=== PATIENT | male | born 1955 | race Hispanic/Latino ===

== ENCOUNTER 2018-06-10 12:24 | Inpatient (IN) | payer MEDICARE, OTHER ==
[~2018-06-10] VITALS: Ht 182.9 cm; Wt 93.6 kg
[2018-06-10] MEDS ORDERED: SODIUM CHLORIDE 0.9% 500ML 500 ML IV STA (12:26)
--- OUTSIDE RECORDS SUMMARY | 2018-06-10 12:26 | XMS REPORT | Clinical Summary ---
Author Author [facility] Organization [facility] Address Unknown Phone Unavailable Care Team Providers Care Interactive Account Manager Name Role Phone Debbie Ball MD PCP Allergies Comments Active Allergy Reactions Severity Noted Date No Known Drug Allergies 05/24/2016 Medications End Date Status Medication Sig Dispensed Refills Start Date Active blood pressure monitor 1 kit 2 (two) 1 each 0 (BLOOD PRESSURE KIT) times a day. 6 kitIndications: Essential hypertension Active blood-glucose meter 1 kit 2 (two) 1 each 0 miscIndications: Type II times a day. 6 or unspecified type diabetes mellitus without mention of complication, not stated as uncontrolled Active aspirin (ECOTRIN) 81 MG Take 1 tablet 30 tablet 3 enteric coated tablet (81 mg total) 6 by mouth daily. Active blood sugar diagnostic TESTING ONCE 100 strip 5 strips (glucose blood) A DAY FOR 6 strip test GLUCOSE stripsIndications: Uncontrolled type 2 diabetes mellitus with hyperosmolarity without coma, without long-term current use of insulin (HCC) Active metFORMIN (GLUCOPHAGE) Take 500 mg 0 1,000 mg tablet by mouth 2 (two) times a day with meals. Active atorvastatin (LIPITOR) 80 TAKE 1 TABLET 90 tablet 0 12/13/201 MG tablet BY MOUTH AT 7 BEDTIME Active tamsulosin (FLOMAX) 0.4 TAKE ONE 90 capsule 0 12/17/201 mg capsule,extended CAPSULE BY 7 release 24hr MOUTH EVERY DAY Active valsartan (DIOVAN) 320 MG Take 1 tablet 30 tablet 1 tablet (320 mg 7 total) by mouth daily. Active atenolol (TENORMIN) 100 TAKE 1 90 tablet 1 MG tablet TABLET(100 7 MG) BY MOUTH EVERY DAY Active pen needle, diabetic 32 TO USE WITH 30 each 5 gauge x 5/32" needle LEVEMIR 7 FLEXPEN 20UNITS IN THE PM Active glipiZIDE (GLUCOTROL) 5 TAKE 1 60 tablet 0 MG tablet TABLET(5 MG) 7 BY MOUTH TWICE DAILY BEFORE MEALS Active FLUoxetine (PROzac) 20 MG TAKE ONE 30 capsule 0 capsule CAPSULE BY 7 MOUTH EVERY DAY Active Problems Problem Noted Date Atherosclerosis 09/21/2016 Diabetic peripheral neuropathy 05/24/2016 Retinopathy 12/24/2015 Depression 12/24/2015 Essential hypertension 11/12/2015 Type II or unspecified type diabetes mellitus without mention of 11/12/2015 complication, not stated as uncontrolled Hyperlipidemia LDL goal <100 11/12/2015 Poor circulation 11/12/2015 Toe amputation status 11/12/2015 Family History Medical History Relation Name Comments Cancer Father Diabetes Father Heart disease Maternal Grandfather Diabetes Maternal Grandmother Diabetes Mother Relation Name Status Comments Father Maternal Grandfather Maternal Grandmother Mother Social History Date Tobacco Use Types Packs/Day Years Used Never Smoker Alcohol Use Drinks/Week oz/Week Comments No Sex Assigned at Date Recorded Not on file Industry Job Start Date Occupation Not on file Not on file Not on file Travel End Travel History Travel Start No recent travel history available. Last Filed Vital Signs Not on file Plan of Treatment Health Maintenance Due Date Last Done Comments DIABETIC RETINAL EYE EXAM 1955 DIABETIC FOOT EXAM 12/28/1965 URINE MICROALBUMIN 12/28/1965 COLON CANCER SCREENING 12/28/2005 SHINGRIX VACCINE (1 of 2) 12/28/2005 ZOSTER VACCINE 2015 INFLUENZA VACCINE 02/15/2018 Results Not on fileafter 06/09/2017 Insurance Payer Benefit Subscriber ID Type Phone Address Plan / Group [facility] MEDICARE AARP xxxxxxxxx O MEDICARE COMPLETE MCR Advance Directives Patient has advance care planning documents on file. For more information, tanvi george contact: Fco Murillo [address] [place] [address]
[2018-06-10] MEDS ORDERED: ONDANSETRON HCL INJ 2 MG/ML VIAL IV PRN ×2 (12:30→16:45)
[2018-06-10] MEDS ORDERED: FAMOTIDINE 20 MG/2 ML VIAL IV ONE (13:00)
--- NOTE | 2018-06-10 13:56 | Diagnostic Imaging Report ---
Examination: Single portable AP view of the chest. COMPARISON: None. INDICATION: Chest pain IMPRESSION: 1. Lines and Tubes: None 2. Low lung volumes, which accentuate the cardiomediastinal silhouette and central vasculature. No consolidation or effusion. 3. Central vascular crowding. 4. No acute bony abnormalities. Signed by: Dr. Ronny Sanchez M.D. on 06/10/2018 1:53 PM
[2018-06-10 14:24] LABS: BASOPHILS # (AUTO) 0.1 (0.0-0.1); BASOPHILS % 0.5 % (0.0-1.0); EOSINOPHILS # (AUTO) 0.1 (0.0-0.4); EOSINOPHILS % 0.5 % (0.0-6.0); HEMATOCRIT 35.8 % (38.2-49.6); HEMOGLOBIN 11.5 g/dL (14.0-18.0); LYMPHOCYTES # (AUTO) 1.7 (1.0-3.2); LYMPHOCYTES % 17.6 % (18.0-39.1); MEAN CORPUSCULAR HGB CONC 32.1 g/dL (31-35); MONOCYTES # (AUTO) 0.9 (0.2-0.8); MONOCYTES % 9.4 % (4.4-11.3); NEUTROPHILS % 71.8 % (38.7-80.0); PLATELET COUNT 321 x10e3/uL (140-360); RED BLOOD COUNT 4.26 x10e6/uL (4.3-5.7); RED CELL DISTRIBUTION WIDTH 13.8 % (11.7-14.4)
--- NOTE | 2018-06-10 15:05 | NUR ---
PT TO CT
[2018-06-10 15:08] LABS: CREATINE KINASE MB 3.8 ng/mL (0-5.0)
[2018-06-10 15:09] LABS: ALBUMIN 3.9 g/dL (3.5-5.0); ALBUMIN/GLOBULIN RATIO 1.1 (0.8-2.0); ANION GAP 16.6 mmol/L (8-16); CALCIUM 10.6 mg/dL (8.4-10.2); CREATININE, SERUM 1.23 mg/dL (0.72-1.25); POTASSIUM 3.6 mmol/L (3.5-5.1)
[2018-06-10] MEDS ORDERED: LORAZEPAM INJ 2 MG/ML VIAL IV ONE (15:30)
--- NOTE | 2018-06-10 16:06 | Diagnostic Imaging Report ---
CT BRAIN WO HISTORY: Altered mental status, CVA COMPARISON: None. TECHNIQUE: Noncontrast axial scans were obtained from skull base to the vertex. Coronal and sagittal reconstructions obtained from the axial data. One or more of the following dose reduction techniques were used: Automated exposure control, adjustment of the mA and/or kV according to patient size, and/or utilization of iterative reconstruction technique. Beam hardening artifacts obscure some details. DISCUSSION: Scalp/Skull: Unremarkable. Brain sulci: Overall mildly prominent. Ventricles: Compensatory dilatation. Extra-axial spaces: No masses or fluid collections. Parenchyma: Diffuse loss of raza-white differentiation and brain swelling throughout the right middle cerebral artery territory are compatible with acute ischemia/cytotoxic edema. There is no evidence for gross hemorrhagic conversion. Focal hyperdensity in the right middle cerebral artery M2 segment region may be due to thrombus. No significant brain herniation is seen. Prominent periventricular white matter hypodensities are likely chronic microvascular ischemic changes. 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 Carotid siphon and vertebral artery calcifications are present. Dural sinuses: No abnormal densities. Sellar/Suprasellar region: Intact. Skull base: Intact. Incidental findings: None. IMPRESSION: 1. Extensive acute ischemia throughout the right middle cerebral artery territory without gross hemorrhagic conversion. There is local cytotoxic edema/brain swelling without significant brain herniation. This was discussed with Dr. Beckie Rivers at 3:54 PM on 06/10/2018. 2. Focal hyperdensity in the right middle cerebral artery M2 segment region may be due to thrombus. 3. 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 Mild generalized cerebral volume loss. Signed by: Dr. James Alvarado M.D. on 06/10/2018 4:03 PM
--- OUTSIDE RECORDS SUMMARY | 2018-06-10 17:00 | XMS REPORT ---
[facility] Address Unknown Phone Unavailable Care Team Providers Care Prosthetic Aides Teacher Name Role Phone Marci SPAIN Unavailable Unavailable Problems This patient has no known problems. Allergies, Adverse Reactions, Alerts This patient has no known allergies or adverse reactions. Medications This patient has no known medications. Results Test Description Test Time Test Comments Text Results Atomic Results Result Comments CT BRAIN WO 2018-06-10 15:51:00 [facility] [address] [place] [address] Patient Name: RAFAL SIDHU MR #: [id number] : 1955 Age/Sex: 62/M Req #: [id number] Adm Physician: Ordered by: NANCY SPAIN MD Report #: [id number] Location: ER Room/Bed: Procedure: [id number] CT/CT BRAIN WO Exam Date: Exam Time: REPORT STATUS: Signed CT BRAIN WO HISTORY: Altered mental status, CVA COMPARISON: None. TECHNIQUE: Noncontrast axial scans were obtained from skull base to the vertex. Coronal and sagittal reconstructions obtained from the axial data. One or more of the following dose reduction techniques were used: Automated exposure control, adjustment of the mA and/or kV according to patient size, and/or utilization of iterative reconstruction technique. Beam hardening artifacts obscure some details. DISCUSSION: Scalp/Skull: Unremarkable. Brain sulci: Overall mildly prominent. Ventricles: Compensatory dilatation. Extra-axial spaces: No masses or fluid collections. Parenchyma: Diffuse loss of raza-white differentiation and brain swelling throughout the right middle cerebral artery territory are compatible with acute ischemia/cytotoxic edema. There is no evidence for gross hemorrhagic conversion. Focal hyperdensity in the right middle cerebral artery M2 segment region may be due to thrombus. No significant brain herniation is seen. Prominent periventricular white matter hypodensities are likely chronic microvascular ischemic changes. 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 Carotid siphon and vertebral artery calcifications are present. Dural sinuses: No abnormal densities. Sellar/Suprasellar region: Intact. Skull base: Intact. Incidental findings: None. IMPRESSION: 1. Extensive acute ischemia throughout the right middle cerebral artery territory without gross hemorrhagic conversion. There is local cytotoxic edema/brain swelling without significant brain herniation. This was discussed with Dr. Beckie Rivers at 3:54 PM on 06/10/2018. 2. Focal hyperdensity in the right middle cerebral artery M2 segment region may be due to thrombus. 3. 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 Mild generalized cerebral volume loss. Signed by: Dr. James Alvarado M.D. on 06/10/2018 4:03 PM Dictated By: JAMES ALVARADO MD [id number] Transcribed By: QUEENIE on 06/10/18 1603 COPY TO: NANCY SPAIN MD CHEST SINGLE (PORTABLE) 2018-06-10 13:52:00 [place] [address] Patient Name: RAFAL SIDHU MR #: [id number] : 1955 Age/Sex: 62/M Req #: [id number] Adm Physician: Ordered by: NANCY SPAIN MD Report #: [id number] Location: Room/Bed: Procedure: [id number] DX/CHEST SINGLE (PORTABLE) Exam Date: Exam Time: REPORT STATUS: Signed Examination: Single portable AP view of the chest. COMPARISON: None. INDICATION: Chest pain IMPRESSION: 1. Lines and Tubes: None 2. Low lung volumes, which accentuate the cardiomediastinal silhouette and central vasculature. No consolidation or effusion. 3. Central vascular crowding. 4. No acute bony abnormalities. Signed by: Dr. Abelardo Sanchez M.D. on 06/10/2018 1:53 PM Dictated By: ABELARDO SANCHEZ MD [id number] Transcribed By: QUEENIE on 06/10/18 9759 COPY TO: NACNY SPAIN MD
--- OUTSIDE RECORDS SUMMARY | 2018-06-10 17:00 | XMS REPORT | Clinical Summary ---
Author Author [facility] Address Unknown Phone Unavailable Care Team Providers Care Plastics Spreading Machine Operator Name Role Phone Debbie Ball MD PCP [...] ID Type Phone Address Plan / Group [facility] MEDICARE AARP xxxxxxxxx O MEDICARE COMPLETE MCR Advance Directives Patient has advance care planning documents on file. For more information, tanvi george contact: Fco Murillo [address] [place] [address]
[2018-06-10] MEDS: SODIUM CHLORIDE 0.9% 1000ML 1,000 ML IV SCH (17:22)
[2018-06-10] MEDS ORDERED: DEXTROSE 50% SYRINGE 50 ML IV PRN (17:45)
[2018-06-10] MEDS ORDERED: FOSPHENYTOIN 500 MG in SODIUM CHLORIDE 0.9% 50ML 50 ML IV ONE (18:00)
--- NOTE | 2018-06-10 18:07 | NUR ---
MED LIST ON CHART FOR REVIEW. UNABLE TO COMPLETE MED REC PRIOR TO ADMIT TO ROOM
[2018-06-10 18:30] VITALS: BP 148/82
--- NOTE | 2018-06-10 18:30 | NUR ---
RECEIVED TO RM 109, AWAKE, PT SPEECH SLURRED, L SIDE WEAKNESS NOTED, BRUISING TO BILATERAL EYES, HEMATOMA TO FOREHEAD NOTED, VS STABLE, R AC 20G NO SS OF INFILTRATION NOTED, PT MADE COMFORTABLE, BED ALARM SET, WILL CONTINUE TO MONITOR
--- NOTE | 2018-06-10 19:18 | NUR ---
WALKING ROUNDS PERFORMED, RECEIVED PT LAYING SEMI FOWLERS IN BED, AAOX0, RR EVEN AND NON-LABORED, ON RA. PT NOT RESPONDING TO VERBAL QUESTIONS. FAMILY AT BEDSIDE. LEFT PT LAYING SEMI FOWLERS IN BED, BED IN LOW LOCKED POSITION, SIDE RAILS UPX2, CALL LIGHT AND PHONE WITHIN REACH.
--- NOTE | 2018-06-10 19:39 | NUR ---
SPOKE WITH DR SEN RE: CONSULT INFORMED NURSE SHE WILL SEE IN AM
[2018-06-10 20:54] VITALS: BP 154/78
--- NOTE | 2018-06-10 21:14 | NUR ---
SPOKE WITH MD SEN CONCERNING RN SWALLOW SCREEN RESULTS. NO NEW ORDERS AT THIS TIME. PT CURRENTLY NPO.
--- NOTE | 2018-06-10 21:15 | NUR ---
SPOKE WITH MD RUBIN CONCERNING PT AGITATION, NEW ORDERS RECEIVED.
[2018-06-10] MEDS: LORAZEPAM INJ 2 MG/ML VIAL IV PRN (21:28)
[2018-06-10 21:30] VITALS: BP 154/78
[2018-06-10] MEDS: INSULIN REGULAR, HUMAN 100 UNIT/1 ML 3ML VIAL SQ SCH (21:30)
[2018-06-11] VITALS (19 sets, daily range): BP systolic 101–173; BP diastolic 60–98
[2018-06-11] MEDS: SODIUM CHLORIDE 0.9% 1000ML 1,000 ML IV SCH ×3 (00:39→15:42)
[2018-06-11] MEDS ORDERED: METFORMIN HCL500 MG PO (02:13)
[2018-06-11] MEDS ORDERED: FLUOXETINE HCL20 MG PO (02:13)
[2018-06-11] MEDS ORDERED: LEVEMIR100 UNIT/1 SQ (02:13)
[2018-06-11] MEDS ORDERED: ACETAMINOPHEN325 M1 PO (02:13)
[2018-06-11] MEDS ORDERED: AMLODIPINE BESYL5 MG PO (02:13)
[2018-06-11] MEDS ORDERED: REMERON30 MG PO (02:13)
[2018-06-11] MEDS ORDERED: GLIPIZIDE5 MG PO (02:13)
[2018-06-11] MEDS ORDERED: HYDROCHLOROTHIA25 MG PO (02:13)
[2018-06-11] MEDS ORDERED: FLUOXETINE HCL10 MG PO (02:13)
[2018-06-11] MEDS ORDERED: METOPROLOL TART50 MG PO (02:13)
[2018-06-11] MEDS ORDERED: COUMADIN5 MG PO (02:13)
[2018-06-11] MEDS ORDERED: SEROQUEL25 MG PO (02:13)
[2018-06-11] MEDS ORDERED: ATORVASTATIN CA20 MG PO (02:13)
--- NOTE | 2018-06-11 05:40 | NUR ---
PAGE PLACED FOR MD RUBIN CONCERNING PT ELEVATED HEART RATE. WAITING FOR CALLBACK.
--- NOTE | 2018-06-11 06:30 | NUR ---
PT FOUND WITH IV OUT LAYING IN BED, BED LINENS CHANGED. NEW IV STARTED TO (R) FA 22G. BLOOD RETURN NOTED, FLUSHES WITHOUT DIFFICULTY.
[2018-06-11] MEDS: INSULIN REGULAR, HUMAN 100 UNIT/1 ML 3ML VIAL SQ SCH ×4 (07:30→21:00)
--- NOTE | 2018-06-11 10:05 | NUR ---
ASSESSMENT COMPLETE NO DISTRESS NOTED, AAOX2,IVF INFUSING TO R FA22G NO SS OF INFILTRATION NOTED,WEAKNESS NOTED TO L SIDE, PT SPEECH SLURRED, ABRASIONS NOTED TO BLE, BRUISING NOTED TO BOTH EYES, HEEL PROTECTORS IN PLACE, SCD APPLIED, DENIES PAIN AT THIS TIME, CALL LIGHT IN REACH WILL CONTINUE TO MONITOR
[2018-06-11] MEDS ORDERED: DEXTROSE 50% SYRINGE 50 ML IV PRN (10:45)
--- NOTE | 2018-06-11 10:55 | NUR ---
SPOKE WITH DR CHAVEZ RE: CONSULT, NO NEW ORDERS AT THIS TIME
[2018-06-11] MEDS ORDERED: INSULIN LISPRO 100 UNIT/1 ML 3ML VIAL SQ SCH (11:30)
[2018-06-11] MEDS: PANTOPRAZOLE 40 MG 10ML VIAL IV SCH (12:15)
[2018-06-11 12:22] LABS: CHOL/HDL RATIO 3.1 (3.9-4.7)
[2018-06-11 12:37] LABS: INR 1.08
[2018-06-11 12:50] LABS: PARTIAL THROMBOPLASTIN TIME 32.1 seconds (23.8-35.5)
[2018-06-11] MEDS: LORAZEPAM INJ 2 MG/ML VIAL IV PRN (12:50)
--- NOTE | 2018-06-11 12:50 | NUR ---
DOWN TO MRI/CT PER ORDERED
--- NOTE | 2018-06-11 12:54 | History and Physical ---
CHIEF COMPLAINT: Fall and weakness, left side. HISTORY OF PRESENT ILLNESS: A 62-year-old male patient with history of stroke x3, hypertension, diabetes, was able to walk with a walker and assistance, sustained a fall recently at [facility] with a bruise to the face. Nurse noticed that patient is not walking and more weak and confused, so he was brought to the emergency room. Patient had a CT that showed evidence of extensive acute ischemia throughout the right middle cerebral artery territory without gross hemorrhagic conversion. 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 Patient has been more confused and agitated. Also, family reports that he coughs while eating. Chest x-ray showed low lung volume. PAST MEDICAL HISTORY: Atrial fibrillation, stroke x3, hypertension, diabetes, BPH, depression. MEDICATIONS: Levemir 15 units daily, metoprolol 100 mg twice daily, hydrochlorothiazide 25 mg daily, amlodipine 5 mg daily, atorvastatin 40 mg daily, metformin 1000 mg twice a day, fluoxetine 20 mg daily, Remeron 30 mg at bedtime, Seroquel 100 mg at night, glipizide 5 mg twice a day, Tylenol No. 3, Coumadin 5 mg daily. REVIEW OF SYSTEMS: Limited. Patient cannot communicate. SURGICAL HISTORY: Cholecystectomy. EKG showed right bundle branch block, modest ST depression. No AFib. PHYSICAL EXAMINATION VITAL SIGNS: Blood pressure 131/78, pulse 95, temperature of 98.6. HEENT: Normal except for a bruise around the eyelid noted on both eyes. Nasal area normal. Face appears to be normal. NECK: Normal. LUNGS: Bilateral air entry normal. CVS: S1 and S2 normal. ABDOMEN: Soft. Bowel sounds normal. LOWER EXTREMITIES: No edema. SKIN: Patient has multiple abrasions to the right anterior leg from recent fall. Left hand is benjamin, no movement. Left lower extremity benjamin, no movement. LABS: CBC: White blood count 9.7, hemoglobin 11.5. Sodium 142, potassium 3.3, calcium 10.6. Creatine kinase 619. ASSESSMENT 1. Acute right middle cerebral artery stroke with left hemiplegia worsening. 2. Fall most, likely from acute stroke. 3. Rhabdomyolysis from fall. 4. History of diabetes. 5. Hypertension. PLAN: We will admit patient. Resume medications. Neurology consultation. Physical therapy, telemetry, fall precaution, speech eval. Job#: [id number] PUN
--- NOTE | 2018-06-11 13:50 | NUR ---
PT TRANSFERRED TO ICU RM 195 PER MD ORDER, BEDSIDE REPORT GIVEN TO COLLEEN HESTER. FAMILY NOTIFIED OF TRANSFER.
--- NOTE | 2018-06-11 14:00 | NUR ---
received patient to room 195, report given to me by elana rendon. patient is in bed, drowsy, ativan given in ct/mri. left side, patient is unable to squeeze hand or press down with foot. speech garbled.
--- NOTE | 2018-06-11 14:08 | Diagnostic Imaging Report ---
MRI BRAIN WO HISTORY: Stroke COMPARISON: Head CT 06/10/2018 TECHNIQUE: Limited MRI examination of the brain was performed without contrast. The patient could not hold still per technologist notes. Motion artifacts obscure some details. Localizer, axial diffusion weighted, and axial T2/FLAIR images were submitted for interpretation. DISCUSSION: Scalp/bone marrow: Grossly unremarkable. Brain sulci: Mildly prominent. Ventricles: Compensatory dilatation. Extra-axial spaces: No masses or fluid collections. Parenchyma: Extensive diffusion restriction throughout the right middle cerebral artery territory is compatible with acute ischemia/cytotoxic edema. There is local brain swelling without significant brain herniation. Confluent T2/FLAIR hyperintense foci throughout the supratentorial white matter are likely chronic microvascular ischemic changes. Multiple old lacunar infarcts are seen in the bilateral centrum semiovale and chilel radiata. Associated T2/FLAIR hyperintensity along the right corticospinal tract is likely due to Wallerian degeneration. Vessels: Abnormal T2/FLAIR hyperintensity in the right middle cerebral artery M2 segment region may be due to occlusion or sluggish flow. Sellar/Suprasellar region: Grossly unremarkable Craniocervical junction: Grossly unremarkable. IMPRESSION: 1. Extensive acute ischemia throughout the right middle cerebral artery territory. There is local cytotoxic edema/brain swelling without significant brain herniation. 2. Abnormal T2/FLAIR hyperintensity in the right middle cerebral artery M2 segment region may be due to occlusion or sluggish flow. 3. Underlying advanced supratentorial chronic microvascular ischemic change. Mild generalized cerebral volume loss. Signed by: Dr. James Alvarado M.D. on 06/11/2018 2:04 PM
--- NOTE | 2018-06-11 14:14 | Diagnostic Imaging Report ---
CT BRAIN WO HISTORY: Stroke COMPARISON: MRI of the brain 06/11/2018, head CT 06/10/2018 TECHNIQUE: Noncontrast axial scans were obtained from skull base to the vertex. Coronal and sagittal reconstructions obtained from the axial data. One or more of the following dose reduction techniques were used: Automated exposure control, adjustment of the mA and/or kV according to patient size, and/or utilization of iterative reconstruction technique. Beam hardening artifacts obscure some details. DISCUSSION: Scalp/Skull: Unremarkable. Brain sulci: Overall mildly prominent. Ventricles: Compensatory dilatation. Extra-axial spaces: No masses or fluid collections. Parenchyma: Grossly unchanged loss of raza-white differentiation and brain swelling throughout the right middle cerebral artery territory is compatible with acute ischemia/cytotoxic edema. There is no evidence for gross hemorrhagic conversion. Focal hyperdensity in the right middle cerebral artery M2 segment region may be due to thrombus or nonspecific calcification. No significant brain herniation is seen. Prominent periventricular white matter hypodensities are likely chronic microvascular ischemic changes. 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 Carotid siphon and vertebral artery calcifications are present. Dural sinuses: No abnormal densities. Sellar/Suprasellar region: Intact. Skull base: Intact. Incidental findings: None. IMPRESSION: 1. Evolving acute ischemia throughout the right middle cerebral artery territory without gross hemorrhagic conversion. Associated local cytotoxic edema/brain swelling has not significantly changed. There is no significant brain herniation. 2. Unchanged focal hyperdensity in the right middle cerebral artery M2 segment region may be due to thrombus or nonspecific calcification. 3. 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 Mild generalized cerebral volume loss. Signed by: Dr. James Alvarado M.D. on 06/11/2018 2:11 PM
--- NOTE | 2018-06-11 15:26 | Consultation ---
DATE OF CONSULTATION: June 11, 2018 NEUROLOGY CONSULT NOTE HISTORY OF PRESENT ILLNESS: Mr. Ray is a 62-year-old right-hand dominant man with past medical history significant for hypertension, hyperlipidemia, insulin-dependent diabetes mellitus, paroxysmal atrial fibrillation, and a prior stroke, admitted to [facility] on June 10, 2018 with symptoms suspicious for a new stroke. History is obtained from the patient's sister, who is at bedside. Mr. Ray is aphasic and encephalopathic and unable to provide medical history at this time. According to the patient's sister, Mr. Ray fell at his assisted on the evening of June 09, 2018. Some time in the morning of June 10, 2018, the patient was noted to have worsening left hemiparesis as well as possible speech disturbance and confusion. Therefore, emergency medical services were notified, and Mr. Ray was brought to the emergency center at [facility] via ambulance for further evaluation of his symptoms. Upon arrival in the emergency center, the patient was afebrile with a blood pressure of 135/82 mmHg and the pulse was 71 beats per minute. The patient's neurological examination was documented as being significant for altered mental status, decreased level of alertness, expressive aphasia, and moderate left-sided facial weakness. No other neurological deficits were documented. A CT of the brain without contrast was performed and did show possible acute ischemia in the right middle cerebral artery distribution with cytotoxic edema. Therefore, Mr. Ray was admitted to [facility] as an inpatient for further evaluation and treatment. As stated above, Mr. Ray has had prior strokes, with the most recent being in 2016. Following this most recent stroke, the patient had dysarthria, hemiparesis affecting an unknown side, and gait impairment. At the assisted, the patient is receiving treatment with Coumadin for paroxysmal atrial fibrillation. REVIEW OF SYSTEMS: Unable to assess secondary to the patient being aphasic and encephalopathic. PAST MEDICAL HISTORY: Hypertension, hyperlipidemia, insulin-dependent diabetes mellitus, paroxysmal atrial fibrillation, mixed depression/anxiety disorder, prior strokes with the most recent being in 2016. PAST SURGICAL HISTORY: Appendectomy, eye surgery related to diabetic retinopathy. PAST HOSPITALIZATIONS: Surgeries/procedures as listed, stroke x2. FAMILY MEDICAL HISTORY: Multiple family members on both sides of Mr. Ray's family have hypertension, hyperlipidemia, and diabetes mellitus. One of the patient's sisters was previously diagnosed with breast cancer, but is currently in remission. SOCIAL HISTORY: Mr. Ray is single. He is the resident of a assisted. The patient is on disability. His sister does not report current or prior tobacco, alcohol, or recreational drug use. HOME MEDICATIONS 1. Coumadin 5 mg by mouth daily. 2. Amlodipine 5 mg by mouth daily. 3. Hydrochlorothiazide 25 mg by mouth daily. 4. Metoprolol 100 mg by mouth twice daily. 5. Atorvastatin 40 mg by mouth at bedtime daily. 6. Glipizide 5 mg by mouth twice daily. 7. Metformin 1000 mg by mouth twice daily. 8. Levemir 15 units subcutaneously daily. 9. Fluoxetine 20 mg by mouth daily. 10. Quetiapine 100 mg by mouth at bedtime daily. 11. Remeron 30 mg by mouth at bedtime daily. ALLERGIES: NO KNOWN DRUG ALLERGIES. NO KNOWN FOOD ALLERGIES. NO KNOWN ALLERGIES TO LATEX. NO KNOWN ALLERGIES TO IODINE OR OTHER CONTRAST MATERIALS. PHYSICAL EXAMINATION VITAL SIGNS: Height 72 inches, weight 180 pounds, BMI 24.4 kg/m2. Blood pressure 131/78 mmHg, pulse 95 beats per minute, respiratory rate 20 breaths per minute, oxygen saturation 97% on room air. GENERAL: The patient is restless, appears agitated. HEENT: Normocephalic, atraumatic. Pupils are surgical. Moist mucous membranes. NECK: Supple. No appreciable thyromegaly. No appreciable carotid bruits. CARDIOVASCULAR: S1, S2, tachycardic. No murmurs, rubs, or gallops. RESPIRATORY: Clear to auscultation bilaterally. No wheezes, rhonchi, or rales. EXTREMITIES: The skin is warm and dry. No clubbing, cyanosis, or edema. The posterior tibial and dorsalis pedis pulses are 1+ and symmetric. SKIN: No rashes or lesions. NEUROLOGIC: Memory/Attention: The patient is restless and appears agitated. He is oriented to person and location (hospital) only. Cranial Nerves: Cranial nerve I - not tested. Cranial nerve II, III, IV, and - pupils are surgical. Extraocular movements cannot be adequately assessed. No nystagmus. Cranial nerve VII - the face is asymmetric on the left as are all facial movements. There is moderate left central facial weakness. Cranial nerve VIII - hearing is grossly intact to voice. Cranial nerve IX, X - the soft palate elevates equally and symmetrically. Cranial nerve XII - the tongue protrudes in midline and moves symmetrically from side to side. Strength: Bulk is diminished throughout. There are normal functional movements of the right arm and right leg. The left arm and left leg withdraw to peripheral noxious stimulation. Tone is increased in the left arm and left leg. DTRs: Plantar responses are flexor on the right and extensor on the left. Sensation: Sensation is as per motor exam. Cerebellar: Unable to assess secondary to the patient being aphasic and encephalopathic. Gait: Deferred. Speech: Spontaneous speech is moderately dysarthric with ugyc-ik-syemokuw expressive aphasia. Involuntary Movements: None. Pronator Drift: As per motor exam. LABORATORY DATA: The patient's initial comprehensive metabolic panel reveals an elevated anion gap of 16.6, a mildly elevated serum calcium of 10.6, as well as an elevated globulin of 3.7. Creatinine kinase 619. CK-MB 3.80. Troponin-I 0.031. The CBC with differential and platelets reveals a white blood cell count of 9.73 with 71.8% neutrophils, 17.6% lymphocytes, 9.4% monocytes, 0.5% eosinophils, and 0.5% basophils. The hemoglobin and hematocrit are 11.5 and 35.8, respectively. The platelet count is 321. PT 15.0. INR 1.08. PTT 32.1. DIAGNOSTIC STUDIES: Electrocardiogram, 06/09/2018: Normal sinus rhythm at 73 beats per minute. Chest x-ray, 06/10/2018: 1. Lines and tubes: None. 2. Low lung volumes, which accentuate the cardiomediastinal silhouette and central vasculature. No consolidation or effusion. 3. Central vascular crowding. 4. No acute bony abnormalities. CT of the brain without contrast, 06/10/2018: On my review, there is extensive, possibly acute ischemia throughout the right middle cerebral artery distribution without evidence of hemorrhagic conversion. There is local cytotoxic edema without midline shift or evidence of brain herniation. There is a focal hypodensity in the N2 segment of the right middle cerebral artery, probably secondary to thrombus. There is diffuse cerebral atrophy with compensatory dilatation of the ventricles, more than expected for the patient's age. There are findings compatible with xwskkimv-sy-pysonb chronic small vessel ischemic disease. ASSESSMENT AND PLAN: Mr. Ray is a 62-year-old right-hand dominant man with an extensive past medical history, admitted to [facility] on June 10, 2018 with a 1-day history of possibly worsening speech deficits, worsening left hemiparesis, gait impairment, and possible confusion. A CT of the brain without contrast reveals extensive, possibly acute ischemia with cytotoxic edema in the right middle cerebral artery distribution. It is important to note, there is no evidence of midline shift or herniation on the CT of the brain without contrast. On neurological examination, Mr. Ray is aphasic and encephalopathic with moderately severe dysarthria and left hemiparesis. The patient's laboratory data and other diagnostic studies have been reviewed and are documented above. RECOMMENDATIONS 1. A repeat CT of the brain without contrast will be ordered stat to evaluate for worsening cytotoxic edema. An MRI of the brain without contrast will be ordered to evaluate the acuity of the patient's stroke. 2. An echocardiogram will be ordered. 3. Bilateral carotid artery ultrasound with Doppler will be ordered. 4. Mr. Ray was on anticoagulation with Coumadin 5 mg by mouth daily at the assisted, presumably for paroxysmal atrial fibrillation. The patient's INR is 1.08 today. Therefore, it is possible, the patient was not adequately anticoagulated at the assisted. This may be the source of this most recent stroke. Due to the absence of hemorrhagic conversion on the CT images of the brain, treatment with Lovenox 80 mg subcutaneously q.12 hours will be prescribed for anticoagulation. 5. Allow permissive hypertension for 24 to 48 hours following the stroke. Mr. Ray has a DE in order for intravenous metoprolol for systolic blood pressure greater than 200 or diastolic blood pressure greater than 110. 6. Follow up the results of the patient's lipid panel. GI access needs to be established 4 continued treatment with cholesterol-lowering medications to be administered. 7. Follow up the results of the hemoglobin A1c. Tight glycemic control is recommended while the patient is in the hospital. Sliding scale insulin has been ordered. 8. Speech and physical therapy evaluations have been ordered. 9. Gastrointestinal prophylaxis with Protonix 40 mg IV daily. Deep venous prophylaxis with Lovenox as described above. 10. Transfer orders to the intermediate care unit for closer monitoring were put in; however, the intermediate care unit has no beds available at present. Therefore, Mr. Ray will be transferred to the intensive care unit. Thank you for this consultation. I will continue to follow the patient while he remains in the hospital. TIME SPENT: 70 minutes. Job#: [id number] NAYU CHERISE
--- NOTE | 2018-06-11 17:32 | Cardiology Report ---
DATE OF STUDY: June 11, 2018 ECHOCARDIOGRAM ATTENDING PHYSICIAN: Dr. Cardenas. M-MODE: Suboptimal study. Normal chamber wall dimensions. Normal contractility. Normal mitral and aortic valves. No pericardial effusion. SECTOR SCAN: Suboptimal study, poor image quality. Normal chamber wall dimensions. Normal mitral and aortic valves. No pericardial effusion. CARDIAC DOPPLER STUDY WITH COLOR: Evidence of diastolic dysfunction, 1+ mitral regurgitation. CONCLUSIONS 1. Suboptimal study with poor image quality with tricuspid and pulmonic valves poorly visualized. 2. Left ventricular ejection fraction is approximately 55% with evidence of diastolic dysfunction. 3. Mild mitral regurgitation. Job#: [id number] LPA cc:PREETHI CARDENAS MD
--- NOTE | 2018-06-11 17:33 | Cardiology Report ---
DATE OF STUDY: June 11, 2018 PLEASE CHECK FOR ORDER NUMBER. DOPPLER SCAN OF THE CAROTID ARTERIES ATTENDING PHYSICIAN: Dr. Cardenas. The distal carotid artery including the internal and external carotid arteries were poorly visualized elsewhere, velocity in normal range. CONCLUSIONS 1. Suboptimal study with poor visualization of the internal and external carotid arteries bilaterally. 2. No high-grade stenosis can be identified in the common carotid arteries bilaterally. 3. Vertebral flow is poorly visualized, particularly in the right side with the left side possibly in normal direction. Job#: [id number] LPA cc:PREETHI CARDENAS MD
--- NOTE | 2018-06-11 19:00 | NUR ---
Report received from Lulu Carlson RN.
--- NOTE | 2018-06-11 19:57 | NUR ---
Pt unable to give family history and no family present.
[2018-06-11] MEDS: QUETIAPINE FUMARATE 100 MG TAB PO SCH (21:36)
[2018-06-11] MEDS: ENOXAPARIN INJ 80 MG/0.8 ML SYR SC SCH (21:36)
[2018-06-12] VITALS (42 sets, daily range): BP systolic 59–175; BP diastolic 47–129
[2018-06-12] MEDS: SODIUM CHLORIDE 0.9% 1000ML 1,000 ML IV SCH ×3 (00:57→19:20)
[2018-06-12] MEDS: INSULIN REGULAR, HUMAN 100 UNIT/1 ML 3ML VIAL SQ SCH ×4 (07:30→21:00)
--- NOTE | 2018-06-12 07:30 | NUR ---
RECVD PT AA, CONFUSED, COMPULSIVE, NOT FOLLOWING INSTRUCTIONS. ASSESSMENT COMPLETED AND RECORDED. NO S/S OF PAIN. PT REMOVED VSS WHEN ALLOWED TO BE TAKEN, PT IS REMOVING ALL LEADS AND BREAKING EQUIPMENT. PT HAS PULLED IV AND REFUSES TO LET US PUT IN ANOTHER. DR CANCHOLA AND DR SEN CALLED.
--- NOTE | 2018-06-12 08:30 | NUR ---
DR CHAVEZ MAKING ROUNDS, OK TO GO TO FLOOR WITH SITTER FROM HIS STAND POINT.
[2018-06-12] MEDS: PANTOPRAZOLE 40 MG 10ML VIAL IV SCH (08:33)
[2018-06-12] MEDS: ENOXAPARIN INJ 80 MG/0.8 ML SYR SC SCH ×2 (08:33→21:03)
--- NOTE | 2018-06-12 09:30 | NUR ---
DR CANCHOLA MAKING ROUNDS, OK TO GO TO FLOOR WITH SITTER IF OK WITH DR SEN. DR SEN CALLED.
[2018-06-12] MEDS: LORAZEPAM INJ 2 MG/ML VIAL IV PRN ×2 (10:00→17:41)
--- NOTE | 2018-06-12 10:00 | NUR ---
UPDATED DR SEN ON STATUS. SHE WANTS PT TO REMAIN IN ICU DUE TO BRAIN IS STILL SWELLING. TO GIVE SEDATION AND OK TO RESTRAIN TO KEEP PT SAFE. PT'S BROTHER IN LAW AT BEDSIDE AND PT IS NOT RESPONDING TO VERBAL INSTRUCTIONS.
--- NOTE | 2018-06-12 10:05 | Consultation ---
DATE OF CONSULTATION: June 12, 2018 REFERRING PHYSICIAN: Dr. Cardenas I would like to thank Dr. Cardenas for asking me to see Mr. Ray in consultation. REASONS FOR CONSULTATION 1. CVA with left-sided hemiparesis. 2. Previous CVA. 3. AFib. 4. Patient with confusion and encephalopathy. HISTORY: Mr. Ray is a 62-year-old male who is a assisted resident, who had previously had a stroke. He came to the hospital on June 10 with symptoms suspicious for a new stroke. He was on anticoagulation for AFib, but his INR was subtherapeutic. The patient also had fallen at the assisted about a day earlier and was noted to have some worsening hemiparesis at that time. The patient was admitted here and seen by Dr. Airam Green in neurologic evaluation. He was started on anticoagulation. A CT was negative for bleed but also showed possible acute ischemia in the right middle cerebral artery. PAST MEDICAL HISTORY: Includes hypertension, hyperlipidemia, insulin-dependent diabetes, history of AFib, depression, anxiety, previous CVAs in the past. SURGERIES: Include appendectomy, eye surgery, secondary retinopathy. FAMILY HISTORY: Positive for hypertension, hyperlipidemia, diabetes. Sister had breast CA. SOCIAL HISTORY: He lives at a group home facility. He cannot tell me what his prior level of function was at this time. HABITS: Nonsmoker, nondrinker. ALLERGIES: NO KNOWN DRUG ALLERGIES. LABS: White cell count is 9.7, hemoglobin 11.5, hematocrit 35.8, platelets 321. Sodium 142, potassium 3.6, BUN 23, creatinine 1.23. PHYSICAL EXAMINATION GENERAL: Seen in the ICU. The patient tends to lie on his right-hand side. He is awake but not really alert and not oriented. EYES: He has right-sided gaze preference. He does not look past midline to the left side. FACE: Left facial droop. ORAL: Tongue is mildly deviated to the left. NECK: Supple. HEART: Regular. LUNGS: Diminished breath sounds. He did not take a deep breath. ABDOMEN: Nondistended, nontender. EXTREMITIES: He has full strength, 5/5 strength of the right upper extremity. In the left upper extremity, he has spasticity with elbow flexion and extension and redrawer. I could not really get him to really move his arm or hand much, but he is able to move the hand fingers minusculely. In the right lower extremity, he could move his leg, but he did not really resist that much against me. The right leg definitely is stronger compared to the left leg. With the left leg, he did not resist initially, but then when he flexed his leg some, he did okay. The patient is also trying to get up out of bed on his own at times. Brain CT showed evolving acute ischemia to the right middle cerebral artery without gross hemorrhage. Carotid Doppler study was ordered and pending. IMPRESSION 1. Status post right middle cerebral artery cerebrovascular accident with left-sided hemiparesis. 2. Previous history of old strokes with left-sided hemiparesis. 3. Diabetes. 4. Hypertension. 5. History of atrial fibrillation. PLAN: Right now, the patient is trying to get up out of bed on his own. It is hard to redirect him. Will have PT and speech therapy see him. There is no OT in the facility. Will follow along with you. Thank you, once again, for allowing me to participate in the care of this unfortunate patient. Job#: [id number]
--- NOTE | 2018-06-12 11:08 | NUR ---
AM CARE COMPLETED, DIAPER CHANGED, IV STARTED TO RIGHT FOREARM 20 G AND WRAPPED IN COBAN. SPEECH TO BEDSIDE RECOMMENDING MBS, NO PT FOR TODAY DUE TO INCREASED CONFUSION AND COMBATIVENESS
--- NOTE | 2018-06-12 13:00 | NUR ---
FAMILY AT BEDSIDE PT REPOSITIONS SELF. CONTINUES CONFUSED UNABLE TO REMEMBER POC.
--- NOTE | 2018-06-12 17:00 | NUR ---
DR SEN MAKING ROUNDS, UPDATED ON STATUS AND CARE.
--- NOTE | 2018-06-12 17:30 | NUR ---
PM CARE COMPLETED. PT PARTIAL BATH, LINENS CHANGED. NO OTHER CHANGES IN CONDITION OR CARE.
--- NOTE | 2018-06-12 17:48 | NUR ---
Nutrition Screen Note RD Recommendation for Physician: -Rec ADA diet as medically appropriate; diet texture per PETROGRAPHY TEACHER -Encourage PO and hydration -If PO is <50%, consider Ensure Compact BID Plan of Care: RD following, monitoring for tolerance and adequacy Nutrition reason for involvement: RN Consult no reason stated Primary Diagnose(s): s/p CVA with L side hemiparesis PMH: strokes, HTN, DM, BPH, Afib Ht: 72in Wt: 180lb BMI: 24.4kg/m2 IBW: 178lb RD Assessment: (06/12) Chart reviewed. Labs and meds reviewed. 62yo M, who is admitted for fall, weakness, and confusion from fpc. Zmecmch-hl-hxn on bedside provides all hx. Prior to this new stroke, pt has been eating very well without needing any assistance. Pt has not been eating less than usual for prolonged amount of time. Qijibgn-dq-hbm didnt notice any recent wt loss. 2 days ago, his speech was incomprehensible but improved significantly this morning. PETROGRAPHY TEACHER consulted. Rjrvccy-qm-evr denies any hx of CKD or CHF. Hb A1c 8.5. Will continue to monitor and follow. Current Diet: NPO Malnutrition Evaluation (06/12/18) The patient does not meet criteria for a specified degree of malnutrition at this time. Will re-evaluate at follow-up as appropriate. Diet Education Needs Assessment: Diet education not indicated. Nutrition Care Level: low Signed: Roseanna Spicer, MS, RD, LD
--- NOTE | 2018-06-12 19:05 | NUR ---
PATIENT CONFUSED AND RESTLESS, LYING WITH HEAD AND SHOULDER TO FAR RIGHT SIDE OF BED AND FEET EXTENDING OFF OF LEFT SIDE OF BED. REPOSITIONED FOR COMFORT. PERIPHERAL IV TO RIGHT FOREARM, WRAPPED WITH COBAN, MULTIPLE FLUID FILLED BLISTERS NOTED ABOVE AND BELOW COBAN DRESSING.
--- NOTE | 2018-06-12 21:00 | NUR ---
REMAINS RESTLESS AND AGITATED. PO SEROQUEL GIVEN WITH BITE OF PUDDING, NO COUGHING NOTED
[2018-06-12] MEDS: QUETIAPINE FUMARATE 100 MG TAB PO SCH (21:03)
[2018-06-12] MEDS: METOPROLOL TARTRATE INJ 1 MG/ML VIAL IV PRN (22:46)
[2018-06-13] VITALS (39 sets, daily range): BP systolic 107–205; BP diastolic 33–118
--- NOTE | 2018-06-13 00:15 | NUR ---
PATIENT CONTINUES TO BE VERY RESTLESS AND AGITATED - CONTINUALLY REPOSITIONS SELF WITH HEAD AND SHOULDER AGAINST RIGHT SIDERAIL AND FEET EXTENDING OFF OF LEFT SIDE OF BED. FOAM WEDGE PLACED BETWEEN PATIENT AND RIGHT SIDERAIL
[2018-06-13] MEDS: LORAZEPAM INJ 2 MG/ML VIAL IV PRN ×3 (00:19→23:16)
--- NOTE | 2018-06-13 02:03 | NUR ---
PATIENT CONFUSED AND RESTLESS, LYING WITH HEAD AND SHOULDER TO FAR RIGHT SIDE OF BED AND FEET EXTENDING OFF OF LEFT SIDE OF BED. REPOSITIONED FOR COMFORT. PERIPHERAL IV TO RIGHT FOREARM, WRAPPED WITH COBAN, MULTIPLE FLUID FILLED BLISTERS NOTED ABOVE AND BELOW COBAN DRESSING. Addendum: 06/13/18 at 0207 by Barbara Hewitt RN SPONGE BATH AT THIS TIME, LINENS CHANGED, COBAN DRESSING TO RIGHT FOREARM ALSO CHANGED. REMAINS WITH MULTIPLE FLUID FILLED BLISTERS - SITE WRAPPED WITH KERLIX GAUZE PRIOR TO APPLYING COBAN DRESSING
[2018-06-13] MEDS: SODIUM CHLORIDE 0.9% 1000ML 1,000 ML IV SCH ×3 (03:19→15:01)
--- NOTE | 2018-06-13 07:00 | NUR ---
BEDSIDE REPORT RECVD. ASSESSMENT COMPLETED AND RECORDED. IV TO RT ARM IS INFILTRATED. AM CARE COMPLETED. NO FAMILY AT BEDSIDE. PT UNABLE TO RESPOND TO UNDERSTANDING CURRENT POC
--- NOTE | 2018-06-13 07:01 | NUR ---
BEDSIDE REPORT GIVEN TO ONCOMING NURSE, PATIENT NOTED TO HAVE MORE FLUID FILLED BLISTERS TO RIGHT ARM ABOVE IV SITE. KIRSTIE REMOVED - ONCOMING NURSE WILL REPORT TO
[2018-06-13] MEDS: INSULIN REGULAR, HUMAN 100 UNIT/1 ML 3ML VIAL SQ SCH ×4 (07:30→21:05)
--- NOTE | 2018-06-13 09:00 | NUR ---
BED BATH GIVEN LINEN CHANGED, IV REPLACED TO LEFT FA, TOLERATES FAIR. PT CONTINUES RESTLESS AND UNABLE TO REMEMBER POC. PT DOES NOT RESPOND TO VERBAL COMMAND.
[2018-06-13] MEDS: PANTOPRAZOLE 40 MG 10ML VIAL IV SCH (09:48)
[2018-06-13] MEDS: ENOXAPARIN INJ 80 MG/0.8 ML SYR SC SCH ×2 (09:49→21:03)
[2018-06-13] MEDS: METOPROLOL TARTRATE INJ 1 MG/ML VIAL IV PRN ×2 (09:50→21:00)
[2018-06-13 10:20] LABS: CLARITY,URINE CLOUDY (CLEAR); COLOR,URINE YELLOW (YELLOW); LEUKOCYTE ESTERASE ,URINE 1+ (NEGATIVE); NITRITE,URINE POSITIVE (NEGATIVE)
[2018-06-13 10:21] LABS: BILIRUBIN,URINE NEGATIVE (NEGATIVE); KETONES,URINE NEGATIVE (NEGATIVE); PROTEIN,URINE DIPSTICK 2+ (NEGATIVE); URINE UROBILINOGEN 0.2 mg/dL (0.2 - 1)
[2018-06-13 10:32] LABS: BACTERIA,URINE MANY /HPF; EPITHELIAL CELLS,URINE FEW /LPF
--- NOTE | 2018-06-13 11:30 | NUR ---
MBS COMPLETED AT BEDSIDE. PT FAILED. DR CANCHOLA MAKING ROUNDS, ORDERS RECVD AND BEING COMPLETED.
--- NOTE | 2018-06-13 11:40 | NUR ---
CALLED OFFICE OF DR DE LEON WITH CONSULT FOR PEG. FAMILY UPDATED ON CURRENT STATUS.
--- NOTE | 2018-06-13 13:00 | NUR ---
FAMILY AT BEDSIDE.UPDATED ON STATUS. PT CONTINUES TO BE RESTLES, MOVING HIS BOTTOM FROM SIDE TO SIDE FREQUENTLY. IS NOT RESPONDING TO FAMILY REDIRECTION.
--- NOTE | 2018-06-13 13:10 | Diagnostic Imaging Report ---
EXAM: Modified barium swallow with Speech Pathologist INDICATION: ^FAILED SPEECH COMPARISON: None available FINDINGS: Multiple consistencies of barium were administered by mouth. Laryngeal penetration and hola aspiration were noted upon administration of thin liquid consistencies. IMPRESSION: Laryngeal penetration and aspiration were noted upon administration of thin liquid consistency. Please see speech pathology report for detailed description and recommendations. Signed by: Dr. Zach Calderón M.D. on 06/13/2018 1:06 PM
--- NOTE | 2018-06-13 15:00 | NUR ---
DR CHAVEZ MAKING ROUNDS, PT UNABLE TO FOLLOW SIMPLE INSTRUCTIONS AT THIS TIME.
[2018-06-13] MEDS: ZIPRASIDONE 20 MG VIAL IM PRN (19:27)
--- NOTE | 2018-06-13 20:42 | Consultation ---
DATE OF CONSULTATION: June 13, 2018 HISTORY: This is a 63-year-old, who has history of CVA, apparently failed swallow evaluations and therefore, GI consult was obtained for possible PEG tube. Patient, currently, is not communicative. MEDICAL PROBLEM: As per record significant for again CVA, history of atrial fibrillation, history of hypertension, history of diabetes, history of BPH, history of depressions. MEDICATIONS: Currently on Geodon, Ativan, Lopressor, Lovenox, Protonix, Seroquel, Humulin. ALLERGIES: NONE. SURGICAL HISTORY: As per record, previous cholecystectomy. SOCIAL HISTORY: As per record, no alcohol use. FAMILY HISTORY: Noncontributory. REVIEW OF SYSTEMS: Unobtainable. Patient is noncommunicative. EXAM GENERAL: Patient is awake, lying in bed, sedated, and currently noncommunicative. VITAL SIGNS: Afebrile currently. HEAD, EYES, EARS, NOSE, AND THROAT: Normocephalic, atraumatic. HEART: Irregular. LUNGS: Clear. ABDOMEN: Soft. No distention at this point. Nontender. EXTREMITIES: No cyanosis, clubbing. LAB VALUES: Significant for, a few days ago, WBC 9.7, hemoglobin 11.5. The chemistry on admission is okay. PT/INR were a little bit high on admission. IMPRESSIONS 1. Oropharyngeal dysphagia. 2. Cerebrovascular accident. 3. Diabetes. 4. Atrial fibrillation. RECOMMENDATIONS: We will proceed with EGD and PEG placement on . Hold Lovenox tomorrow. We will follow labs. Job#: [id number] CQ
[2018-06-13] MEDS: QUETIAPINE FUMARATE 100 MG TAB PO SCH (21:00)
[2018-06-14] VITALS (66 sets, daily range): BP systolic 128–199; BP diastolic 26–108
[2018-06-14] MEDS: SODIUM CHLORIDE 0.9% 1000ML 1,000 ML IV SCH ×3 (00:55→18:04)
[2018-06-14] MEDS: METOPROLOL TARTRATE INJ 1 MG/ML VIAL IV PRN ×2 (03:59→09:55)
[2018-06-14 05:25] LABS: INR 1.17; PROTHROMBIN TIME 15.9 seconds (11.9-14.5)
[2018-06-14 06:13] LABS: BASOPHILS % 0.3 % (0.0-1.0); EOSINOPHILS % 0.1 % (0.0-6.0); HEMATOCRIT 21.9 % (38.2-49.6); LYMPHOCYTES % 9.8 % (18.0-39.1); MEAN CORPUSCULAR HEMOGLOBIN 27.2 pg (28-32); MEAN CORPUSCULAR VOLUME 85.2 fL (81-99); MONOCYTES # (AUTO) 0.8 (0.2-0.8); NEUTROPHILS # (AUTO) 8.3 (2.1-6.9); NEUTROPHILS % 81.4 % (38.7-80.0); PLATELET COUNT 261 x10e3/uL (140-360); RED BLOOD COUNT 2.57 x10e6/uL (4.3-5.7); RED CELL DISTRIBUTION WIDTH 13.7 % (11.7-14.4)
[2018-06-14 06:29] LABS: ANION GAP 11.9 mmol/L (8-16); BLOOD UREA NITROGEN 12 mg/dL (7-26); BUN/CREATININE RATIO 14 (6-25); CALCIUM 8.3 mg/dL (8.4-10.2); CARBON DIOXIDE 21 mmol/L (22-29); CHLORIDE 111 mmol/L (98-107); CREATININE, SERUM 0.83 mg/dL (0.72-1.25); EST GLOMERULAR FILTRATION RATE > 60 ML/MIN (60-); GLUCOSE 186 mg/dL (74-118); SODIUM 141 mmol/L (136-145)
[2018-06-14 06:30] LABS: POTASSIUM 2.9 mmol/L (3.5-5.1)
--- NOTE | 2018-06-14 06:32 | NUR ---
CALL PLACED FOR DR CANCHOLA REGARDING CRITICAL AM LAB RESULTS, AWAITING RETURN CALL
--- NOTE | 2018-06-14 06:39 | NUR ---
DR CANCHOLA RETURNED CALL, NEW ORDERS RECEIVED
[2018-06-14] MEDS ORDERED: POTASSIUM CHLORIDE 20MEQ/100ML 200 ML IV ONE ×2 (06:45→07:30)
--- NOTE | 2018-06-14 07:00 | NUR ---
BEDSIDE REPORT RECVD. ASSESSMENT COMPLETED AND RECORDED. VS RECORDED. MEDICATED PER EMAR. BEDBATH GIVEN AND ALL LINEN CHANGED. TOLERATES WELL. NO FAMILY AT BEDSIDE.
[2018-06-14] MEDS ORDERED: SODIUM CHLORIDE 0.9% 250ML 250 ML IV ONE (07:15)
[2018-06-14] MEDS: INSULIN REGULAR, HUMAN 100 UNIT/1 ML 3ML VIAL SQ SCH ×4 (07:30→20:59)
[2018-06-14] MEDS: ENOXAPARIN INJ 80 MG/0.8 ML SYR SC SCH (08:02)
[2018-06-14] MEDS: LORAZEPAM INJ 2 MG/ML VIAL IV PRN ×3 (08:03→21:00)
[2018-06-14] MEDS: PANTOPRAZOLE 40 MG 10ML VIAL IV SCH (09:00)
--- NOTE | 2018-06-14 09:30 | NUR ---
BROTHER IN LAW AT BEDSIDE. UPDATED ON CURRENT STATUS. STATES HE IS ABLE TO SIGN CONSENTS FOR PEG AND PRBC, WILL WAIT UNTIL SISTER IS HERE. PT APPEARS TO BE LESS RESTLESS AFTER MEDS GIVEN. VSS AND RECORDED.
[2018-06-14] MEDS: ZIPRASIDONE 20 MG VIAL IM PRN (09:54)
--- NOTE | 2018-06-14 11:03 | NUR ---
PER FAMILY STATES ESTELLA IS THE POA, UPDATED ON STATUS AND SHE STATES IT IS OK FOR TALHA SIDHU SISTER OF PT TO SIGN CONSENTS FOR PEG AND PRBC INFUSION. PT TEMP OF 101.1 WILL CALL
[2018-06-14] MEDS ORDERED: ACETAMINOPHEN 1000 MG/100 ML IV PRN (11:15)
[2018-06-14] MEDS: PIPER-TAZ 3.375 GM 50 ML IV SCH ×3 (12:00→23:53)
--- NOTE | 2018-06-14 12:31 | NUR ---
Director Of Cardiology to bedside to discuss plan of care with patient/family. CM/SW role and care transitions discussed. Anticipated discharge plan discussed along with duration of care. CM/SW discussed patients right to make decisions in care. CM/SW work hours given. Patient lives: [facility] Address: [address], [place] [address] Admit/Transfer: ER POA/Emergency contact: DAUGHTER: KO MARTIN- [phone]; SISTER: ESTELLA SIDHU [phone]; BROTHER IN LAW: HERIBERTO COSTA- [phone] Current/Previous Home Health: PATIENT AT [facility] PCP/Follow-up Care: NA Current/Previous DME: NA; PATIENT WITH STROKE AND NOT VERBAL AT THIS TIME Other Services: NA Employment Status: UNEMPLOYED Areas of Concerns: STROKE EDUCATION Referral Needs: POSSIBLE INPATIENT REHAB; PENDING PT ASSESSMENT Education Needs: STROKE IMM/SALAZAR given and signed (if applicable): NA Goal for discharge: RETURN TO A [facility] INDEPENDENT CM left business card at the bedside with contact information. Name and number was also written on the patients whiteboard. Patient verbalized understanding of discussion. CM will follow-up with ongoing discharge and transition of care needs.
[2018-06-14] MEDS ORDERED: SODIUM CHLORIDE 0.9% 250ML 250 ML ONE (12:45)
--- NOTE | 2018-06-14 19:30 | NUR ---
Received patient very restless in bed, restrained and on fall precaution, on iv fluids. Due for a peg placement tomorrow, to be kept NPO from midnight
[2018-06-14] MEDS: QUETIAPINE FUMARATE 100 MG TAB PO SCH (20:55)
--- NOTE | 2018-06-14 21:30 | NUR ---
patient very restless, given Ativan to calm him down, on close monitoring. Remains restrained
--- NOTE | 2018-06-14 22:30 | NUR ---
Patient in deep sleep post Ativan and having apneic attacks, desaturating below 50%. Started on oxygen via nasal cannula at 4l/min. Saturating above 90%, on close monitoring
[2018-06-15] VITALS (95 sets, daily range): BP systolic 82–204; BP diastolic 37–139
--- NOTE | 2018-06-15 01:00 | NUR ---
Patient cleaned, dirty linens changed, repositioned in bed for comfort
[2018-06-15] MEDS: SODIUM CHLORIDE 0.9% 1000ML 1,000 ML IV SCH ×3 (02:05→21:02)
[2018-06-15] MEDS: METOPROLOL TARTRATE INJ 1 MG/ML VIAL IV PRN (02:23)
--- NOTE | 2018-06-15 03:00 | NUR ---
patient with heart rate of 125 and systolic blood pressure above 165, given metoprolol as prescribed
--- NOTE | 2018-06-15 04:30 | NUR ---
Patient with wet diaper, cleaned and changed, repositioned for comfort
[2018-06-15 04:51] LABS: BASOPHILS % 0.4 % (0.0-1.0); EOSINOPHILS % 0.4 % (0.0-6.0); HEMATOCRIT 23.9 % (38.2-49.6); HEMOGLOBIN 7.9 g/dL (14.0-18.0); LYMPHOCYTES % 11.4 % (18.0-39.1); MEAN CORPUSCULAR HEMOGLOBIN 27.6 pg (28-32); MEAN CORPUSCULAR HGB CONC 33.1 g/dL (31-35); MEAN CORPUSCULAR VOLUME 83.6 fL (81-99); MONOCYTES # (AUTO) 0.6 (0.2-0.8); MONOCYTES % 7.6 % (4.4-11.3); NEUTROPHILS # (AUTO) 6.7 (2.1-6.9); NEUTROPHILS % 79.8 % (38.7-80.0); PLATELET COUNT 238 x10e3/uL (140-360); RED BLOOD COUNT 2.86 x10e6/uL (4.3-5.7)
[2018-06-15 05:15] LABS: ANION GAP 11.8 mmol/L (8-16); BLOOD UREA NITROGEN 11 mg/dL (7-26); BUN/CREATININE RATIO 13 (6-25); CALCIUM 8.3 mg/dL (8.4-10.2); CARBON DIOXIDE 23 mmol/L (22-29); CHLORIDE 114 mmol/L (98-107); CREATININE, SERUM 0.83 mg/dL (0.72-1.25); EST GLOMERULAR FILTRATION RATE > 60 ML/MIN (60-); GLUCOSE 145 mg/dL (74-118); SODIUM 146 mmol/L (136-145)
[2018-06-15 05:20] LABS: POTASSIUM 2.8 mmol/L (3.5-5.1)
[2018-06-15] MEDS: PIPER-TAZ 3.375 GM 50 ML IV SCH ×3 (06:00→19:10)
--- NOTE | 2018-06-15 06:00 | NUR ---
Received critical results for potassium of 2.9, called Dr Quarles office, awaiting a call back
--- NOTE | 2018-06-15 07:00 | NUR ---
CHG bath completed. Patient tolerates turning in bed, follows commands, and communicates well by nodding head, pointing fingers, and simple words.
--- NOTE | 2018-06-15 07:01 | Diagnostic Imaging Report ---
EXAM: CHEST SINGLE (PORTABLE), AP 1 view INDICATION: Shortness of breath COMPARISON: AP view of the chest June 10, 2018 FINDINGS: LINES/TUBES: None LUNGS: No consolidations or edema. PLEURA: No effusions or pneumothorax. HEART AND MEDIASTINUM: Stable appearance of the heart with rounded right heart border. BONES AND SOFT TISSUES: Oral contrast is seen in the hepatic flexure. IMPRESSION: No interval change in appearance of the chest. Nonspecific rounded right heart border. An upright PA and lateral view of the chest is recommended when clinically feasible. Signed by: Dr. Maricruz Lo M.D. on 06/15/2018 6:58 AM
--- NOTE | 2018-06-15 07:07 | NUR ---
Handed over patient hemodynamically stable
[2018-06-15] MEDS ORDERED: SODIUM CHLORIDE 0.9% 250ML 250 ML IV ONE (07:15)
[2018-06-15] MEDS: LORAZEPAM INJ 2 MG/ML VIAL IV PRN (07:19)
--- NOTE | 2018-06-15 07:25 | NUR ---
Attempted PT evaluation at 0720, but unable to complete due to critical potassium levels of K+ 2.9. has been contacted per nursing notes so potassium can be replaced. Defer PT evaluation today 06/15/18. Will attempted again tomorrow. Addendum: 06/15/18 at 0725 by Luly Mcmahan PT Amended: Links added.
[2018-06-15] MEDS: INSULIN REGULAR, HUMAN 100 UNIT/1 ML 3ML VIAL SQ SCH ×4 (07:30→21:02)
[2018-06-15] MEDS ORDERED: POTASSIUM CHLORIDE 20MEQ/100ML 100 ML IV ONE ×2 (07:45→11:15)
[2018-06-15] MEDS ORDERED: MAGNESIUM SULF 1GRAM/DEXTROSE 100 ML IV ONE (08:15)
[2018-06-15] MEDS: PANTOPRAZOLE 40 MG 10ML VIAL IV SCH (09:23)
--- NOTE | 2018-06-15 09:32 | NUR ---
ST NOTE: Pt given Ativan for pain and discomfort this AM, scheduled for peg tube placement today. Will continue to follow pt with NMES to treat dysphagia. Handoff to MIR Esquivel
--- NOTE | 2018-06-15 10:36 | NUR ---
CHG bath completed in preparation for OR today.
--- NOTE | 2018-06-15 13:40 | NUR ---
Patient to OR via bed for PEG placement. Brother in law ( to patient's POA) at bedside, accompanying to preop.
--- NOTE | 2018-06-15 14:56 | NUR ---
Patient lethargic, with VSS. Brother in law to bedside. Monitoring continually.
--- NOTE | 2018-06-15 17:17 | NUR ---
Complete bath and linen change; abd binder in place; patient communicates no further needs presently.
[2018-06-15] MEDS: QUETIAPINE FUMARATE 100 MG TAB PO SCH (19:32)
[2018-06-15] MEDS ORDERED: MIDAZOLAM HCL 2 MG/2 ML VIAL ONE (20:12)
[2018-06-15] MEDS ORDERED: KETAMINE HCL INJ 50 MG/ML 10 ML VIAL ONE (20:12)
[2018-06-15] MEDS ORDERED: PROPOFOL IV EMULSION 10 MG/ML 20 ML VIAL ONE (20:12)
[2018-06-16] VITALS (29 sets, daily range): BP systolic 131–189; BP diastolic 55–115
[2018-06-16] MEDS: PIPER-TAZ 3.375 GM 50 ML IV SCH ×5 (01:35→23:56)
[2018-06-16] MEDS: LORAZEPAM INJ 2 MG/ML VIAL IV PRN (03:11)
[2018-06-16] MEDS: SODIUM CHLORIDE 0.9% 1000ML 1,000 ML IV SCH ×4 (04:34→23:56)
[2018-06-16] MEDS: INSULIN REGULAR, HUMAN 100 UNIT/1 ML 3ML VIAL SQ SCH ×4 (07:30→21:48)
[2018-06-16] MEDS: PANTOPRAZOLE 40 MG 10ML VIAL IV SCH (10:27)
--- NOTE | 2018-06-16 10:30 | NUR ---
CM CALLED PATIENT DAUGHTER REGARDING [facility] REFERRAL. PATIENT DAUGHTER IS NEXT OF KIN. WAITING ON RETURN CALL. PATIENT FAMILY REQUESTING [facility] BECAUSE IT IS CLOSER TO WHERE THEY LIVE. DAUGHTER: OCTOBER MARIO- [phone] PENDING RETURN CALL.
--- NOTE | 2018-06-16 10:48 | NUR ---
bed is low and locked and armed bed alarm Addendum: 06/16/18 at 1048 by Katlyn Fierro RN Amended: Links added.
[2018-06-16 11:28] LABS: BASOPHILS % 0.5 % (0.0-1.0); EOSINOPHILS # (AUTO) 0.1 (0.0-0.4); EOSINOPHILS % 0.9 % (0.0-6.0); HEMATOCRIT 24.5 % (38.2-49.6); HEMOGLOBIN 8.4 g/dL (14.0-18.0); LYMPHOCYTES # (AUTO) 1.1 (1.0-3.2); LYMPHOCYTES % 14.6 % (18.0-39.1); MEAN CORPUSCULAR HEMOGLOBIN 28.7 pg (28-32); MEAN CORPUSCULAR HGB CONC 34.3 g/dL (31-35); MEAN CORPUSCULAR VOLUME 83.6 fL (81-99); MONOCYTES # (AUTO) 0.5 (0.2-0.8); NEUTROPHILS # (AUTO) 5.8 (2.1-6.9); NEUTROPHILS % 76.2 % (38.7-80.0); PLATELET COUNT 232 x10e3/uL (140-360); RED BLOOD COUNT 2.93 x10e6/uL (4.3-5.7); RED CELL DISTRIBUTION WIDTH 14.5 % (11.7-14.4)
[2018-06-16 11:42] LABS: ANION GAP 14.1 mmol/L (8-16); BLOOD UREA NITROGEN 10 mg/dL (7-26); BUN/CREATININE RATIO 14 (6-25); CALCIUM 8.2 mg/dL (8.4-10.2); CARBON DIOXIDE 21 mmol/L (22-29); CHLORIDE 115 mmol/L (98-107); CREATININE, SERUM 0.74 mg/dL (0.72-1.25); EST GLOMERULAR FILTRATION RATE > 60 ML/MIN (60-); GLUCOSE 150 mg/dL (74-118); POTASSIUM 3.1 mmol/L (3.5-5.1); SODIUM 147 mmol/L (136-145)
--- NOTE | 2018-06-16 11:57 | NUR ---
PATIENT RECEIVING PHYSICAL THERAPY AND JUST PREVIOUS HAD NMES W SPEECH THERAPY Addendum: 06/16/18 at 1159 by Katlyn Fierro RN Amended: Links added.
--- NOTE | 2018-06-16 12:56 | NUR ---
CM CALLED PATIENT DAUGHTER AGAIN REGARDING [facility] REFERRAL. PATIENT DAUGHTER IS NEXT OF KIN. WAITING ON RETURN CALL. PATIENT FAMILY REQUESTING [facility] BECAUSE IT IS CLOSER TO WHERE THEY LIVE. DAUGHTER: OCTOBER MARIO- [phone] PENDING RETURN CALL. CM TO FOLLOW UP
[2018-06-16] MEDS: ZIPRASIDONE 20 MG VIAL IM PRN (13:01)
--- NOTE | 2018-06-16 14:49 | NUR ---
Nutrition Intervention Note RD Recommendation for Physician: - Rec TF of Glucerna 1.5 @60mL/hr with 50mL free water flushes Q 4hr, providing 2160kcal, 119g protein, and 1093mL fluids will meet 100% of his est calorie and protein needs - Rec PO for pleasure eating if tolerated; diet texture per EXTENSION WORK DIRECTOR - Monitor for tolerance and adequacy - Check daily labs and replace low lytes - Obtain daily weight Plan of Care: RD following, monitoring for tolerance and adequacy, TF rec Nutrition reason for involvement: MD consult TF rec Primary Diagnose(s): s/p CVA with L side hemiparesis PMH: strokes, HTN, DM, BPH, Afib GI: Abd soft, non-tender 06/16 Skin: intact Labs: (06/16) Na 147 H, K 3.1 L, Glucose 150 H, Ca 8.2 L, HbA1c 8.5% Meds: (06/16) IVF, protonix Ht: 72in Wt: 180lb 06/11 admit weight, 210lb 06/16 (Possible fluid retention) BMI: 24.4kg/m2 IBW: 178lb RD Assessment: 06/16 Chart reviewed. Pt failed swallow evaluation. PEG tube was placed on 06/15. EXTENSION WORK DIRECTOR is following. Pt is not intubated or on vent. No pressor meds or sedation. Visited pt in the room. Pt is awake but not communicative. Currently receiving IVF. Per family, pt has been doing well after surgery and no GI complain noted. RD rec Glucerna 1.5 @60mL/hr via PEG w free water of 50mL Q 4 hr. Discussed with nursing. Will continue to monitor and follow. (06/12) Chart reviewed. Labs and meds reviewed. 62yo M, who is admitted for fall, weakness, and confusion from residential. Gidfrcs-qv-mzd on bedside provides all hx. Prior to this new stroke, pt has been eating very well without needing any assistance. Pt has not been eating less than usual for prolonged amount of time. Yuchutv-yz-nab didnt notice any recent wt loss. 2 days ago, his speech was incomprehensible but improved significantly this morning. EXTENSION WORK DIRECTOR consulted. Qhneiwp-gd-cli denies any hx of CKD or CHF. Hb A1c 8.5. Will continue to monitor and follow. Malnutrition Evaluation (06/12/18) The patient does not meet criteria for a specified degree of malnutrition at this time. Will re-evaluate at follow-up as appropriate. Nutrition Prescription (Diet Order): NPO Estimated Nutritional Needs: Calories: 2049 2870kcal (25-35kcal/kg/d) Weight used : Actual weight of 82kg Protein : 82 123g (1-1.5g/kg/d) Weight used: Actual weight of 82kg Diet Adequacy: Not meeting calorie needs, Not meeting protein needs Diet Education Needs Assessment: Diet education not indicated, patient on temporary/transition diet. Nutrition Care Level: moderate Nutrition Diagnosis: Swallowing difficulty related to CVA as evidenced pt requiring EN as main source of nutrients. Goal: Patient will meet 75-100% of estimated needs by follow up Progress: N/A Interventions: Composition, Rate, Route, IVF, Prescription medications, Collaboration with other providers Monitoring/Evaluation: Total energy intake, Total protein intake, Formula/Solution, IVF, Prescription medication, Modified diet, Liquid supplement, Weight change Signed: Roseanna Spicer MS, RD, LD
--- NOTE | 2018-06-16 15:03 | NUR ---
patient very restless in bed and constantly moving onto his back after being turned Addendum: 06/16/18 at 1504 by Katlyn Fierro RN Amended: Links added.
--- NOTE | 2018-06-16 15:32 | NUR ---
CM CALLED PATIENT DAUGHTER REGARDING [facility] REFERRAL. PATIENT DAUGHTER IS NEXT OF KIN. WAITING ON RETURN CALL: DAUGHTER: OCTOBER MARTIN- [phone] PATIENT SISTER REQUESTING [facility]. CM TO FOLLOW UP.
--- NOTE | 2018-06-16 15:37 | NUR ---
patient restless and at risk for heel sheering. applied heel protectors
[2018-06-16] MEDS ORDERED: POTASSIUM CHLORIDE 20MEQ/15ML UDC NG ONE (17:45)
[2018-06-16] MEDS ORDERED: WATER STERILE 10 ML VIAL INJ PRN (19:45)
[2018-06-16] MEDS ORDERED: ATORVASTATIN 20 MG TAB PO SCH (21:00)
[2018-06-16] MEDS: FLUOXETINE HCL 20 MG CAP PO SCH (21:46)
[2018-06-16] MEDS: ATORVASTATIN 40 MG TAB PO SCH (21:46)
[2018-06-16] MEDS: QUETIAPINE FUMARATE 100 MG TAB PO SCH (21:46)
[2018-06-17] VITALS (42 sets, daily range): BP systolic 131–202; BP diastolic 64–108
[2018-06-17] MEDS: PIPER-TAZ 3.375 GM 50 ML IV SCH ×4 (00:32→23:29)
[2018-06-17] MEDS: LORAZEPAM INJ 2 MG/ML VIAL IV PRN (00:33)
--- NOTE | 2018-06-17 00:33 | NUR ---
PATIENT VERY ANXIOUS. BEATING AGAINST BED RAILS. TRIED ALL OTHER INTERVENTIONS BU FAILED SO ATIVAN PRN DOSE WAS GIVEN.
--- NOTE | 2018-06-17 05:22 | NUR ---
PAGED DR CANCHOLA REGARDING PATIENTS ELEVATED BLOOD PRESSURE
--- NOTE | 2018-06-17 05:37 | NUR ---
PULLED PATIENTs ZOYSN AND WAS MIXED AT 0530. MED NOT DUE TILL 1200 TODAY. WILL LEAVE FOR DAYSHIFT AND IF DISCHARGED RETURN TO PHARMACY
[2018-06-17] MEDS: ZIPRASIDONE 20 MG VIAL IM PRN (05:58)
[2018-06-17] MEDS: SODIUM CHLORIDE 0.9% 1000ML 1,000 ML IV SCH ×2 (07:54→16:46)
[2018-06-17 08:10] LABS: BASOPHILS % 0.5 % (0.0-1.0); EOSINOPHILS # (AUTO) 0.1 (0.0-0.4); EOSINOPHILS % 1.4 % (0.0-6.0); HEMATOCRIT 30.5 % (38.2-49.6); HEMOGLOBIN 10.1 g/dL (14.0-18.0); LYMPHOCYTES # (AUTO) 1.2 (1.0-3.2); LYMPHOCYTES % 13.9 % (18.0-39.1); MEAN CORPUSCULAR HEMOGLOBIN 28.1 pg (28-32); MEAN CORPUSCULAR HGB CONC 33.1 g/dL (31-35); MONOCYTES # (AUTO) 0.5 (0.2-0.8); MONOCYTES % 6.3 % (4.4-11.3); NEUTROPHILS # (AUTO) 6.5 (2.1-6.9); NEUTROPHILS % 76.8 % (38.7-80.0); PLATELET COUNT 252 x10e3/uL (140-360); RED BLOOD COUNT 3.59 x10e6/uL (4.3-5.7); RED CELL DISTRIBUTION WIDTH 14.6 % (11.7-14.4)
[2018-06-17 08:26] LABS: ANION GAP 13.3 mmol/L (8-16); BLOOD UREA NITROGEN 10 mg/dL (7-26); BUN/CREATININE RATIO 12 (6-25); CALCIUM 8.3 mg/dL (8.4-10.2); CARBON DIOXIDE 22 mmol/L (22-29); CHLORIDE 112 mmol/L (98-107); CREATININE, SERUM 0.84 mg/dL (0.72-1.25); EST GLOMERULAR FILTRATION RATE > 60 ML/MIN (60-); GLUCOSE 239 mg/dL (74-118); POTASSIUM 3.3 mmol/L (3.5-5.1); SODIUM 144 mmol/L (136-145)
[2018-06-17] MEDS: PANTOPRAZOLE 40 MG 10ML VIAL IV SCH (08:28)
[2018-06-17] MEDS: FLUOXETINE HCL 20 MG CAP PO SCH (08:29)
[2018-06-17] MEDS: METOPROLOL TARTRATE 50 MG TAB PO SCH ×2 (08:29→17:27)
[2018-06-17] MEDS: INSULIN REGULAR, HUMAN 100 UNIT/1 ML 3ML VIAL SQ SCH ×4 (08:38→20:17)
[2018-06-17] MEDS ORDERED: POTASSIUM CHLORIDE 20MEQ/15ML UDC PEG NR (09:00)
[2018-06-17] MEDS ORDERED: ZIPRASIDONE 20 MG VIAL IM PRN (11:00)
[2018-06-17] MEDS: ATORVASTATIN 40 MG TAB PO SCH (20:04)
[2018-06-17] MEDS: QUETIAPINE FUMARATE 100 MG TAB PO SCH (20:04)
[2018-06-17] MEDS ORDERED: ACETAMINOPHEN 325 MG TAB PO PRN (20:15)
--- NOTE | 2018-06-17 21:50 | NUR ---
NOTICED A RHYTHM CHANGE. EKG ORDERED
[2018-06-17] MEDS: METOPROLOL TARTRATE INJ 1 MG/ML VIAL IV PRN (22:21)
[2018-06-18] VITALS (30 sets, daily range): BP systolic 127–199; BP diastolic 70–104
[2018-06-18] MEDS: SODIUM CHLORIDE 0.9% 1000ML 1,000 ML IV SCH ×2 (00:45→08:02)
[2018-06-18] MEDS: PIPER-TAZ 3.375 GM 50 ML IV SCH ×3 (05:32→17:06)
[2018-06-18] MEDS: METOPROLOL TARTRATE INJ 1 MG/ML VIAL IV PRN (05:55)
[2018-06-18] MEDS: INSULIN REGULAR, HUMAN 100 UNIT/1 ML 3ML VIAL SQ SCH ×4 (07:52→20:08)
[2018-06-18] MEDS: PANTOPRAZOLE 40 MG 10ML VIAL IV SCH (08:14)
[2018-06-18] MEDS: METOPROLOL TARTRATE 50 MG TAB PO SCH ×2 (08:14→16:43)
[2018-06-18] MEDS: FLUOXETINE HCL 20 MG CAP PO SCH (08:14)
[2018-06-18] MEDS: ZIPRASIDONE 20 MG VIAL IM PRN (08:40)
[2018-06-18] MEDS: WATER STERILE 10 ML VIAL INJ PRN (08:40)
[2018-06-18] MEDS: ATORVASTATIN 40 MG TAB PO SCH (20:06)
[2018-06-18] MEDS: QUETIAPINE FUMARATE 100 MG TAB PO SCH (20:06)
[2018-06-19] VITALS (30 sets, daily range): BP systolic 134–198; BP diastolic 58–174
[2018-06-19] MEDS: PIPER-TAZ 3.375 GM 50 ML IV SCH ×4 (00:11→18:47)
[2018-06-19] MEDS: SODIUM CHLORIDE 0.9% 1000ML 1,000 ML IV SCH (03:39)
[2018-06-19 04:56] LABS: BASOPHILS # (AUTO) 0.1 (0.0-0.1); BASOPHILS % 0.7 % (0.0-1.0); EOSINOPHILS # (AUTO) 0.1 (0.0-0.4); EOSINOPHILS % 1.9 % (0.0-6.0); HEMATOCRIT 28.3 % (38.2-49.6); HEMOGLOBIN 9.2 g/dL (14.0-18.0); LYMPHOCYTES # (AUTO) 1.2 (1.0-3.2); LYMPHOCYTES % 16.5 % (18.0-39.1); MEAN CORPUSCULAR HEMOGLOBIN 27.8 pg (28-32); MEAN CORPUSCULAR HGB CONC 32.5 g/dL (31-35); MEAN CORPUSCULAR VOLUME 85.5 fL (81-99); MONOCYTES # (AUTO) 0.6 (0.2-0.8); MONOCYTES % 7.6 % (4.4-11.3); NEUTROPHILS # (AUTO) 5.5 (2.1-6.9); NEUTROPHILS % 72.6 % (38.7-80.0); PLATELET COUNT 281 x10e3/uL (140-360); RED BLOOD COUNT 3.31 x10e6/uL (4.3-5.7); RED CELL DISTRIBUTION WIDTH 14.9 % (11.7-14.4)
[2018-06-19 05:20] LABS: ANION GAP 12.7 mmol/L (8-16); BLOOD UREA NITROGEN 14 mg/dL (7-26); BUN/CREATININE RATIO 16 (6-25); CALCIUM 8.5 mg/dL (8.4-10.2); CARBON DIOXIDE 25 mmol/L (22-29); CHLORIDE 108 mmol/L (98-107); CREATININE, SERUM 0.87 mg/dL (0.72-1.25); EST GLOMERULAR FILTRATION RATE > 60 ML/MIN (60-); GLUCOSE 227 mg/dL (74-118); POTASSIUM 3.7 mmol/L (3.5-5.1); SODIUM 142 mmol/L (136-145)
[2018-06-19] MEDS: PANTOPRAZOLE 40 MG 10ML VIAL IV SCH (07:50)
[2018-06-19] MEDS: FLUOXETINE HCL 20 MG CAP PO SCH (07:55)
[2018-06-19] MEDS: METOPROLOL TARTRATE 50 MG TAB PO SCH (07:55)
[2018-06-19] MEDS: INSULIN REGULAR, HUMAN 100 UNIT/1 ML 3ML VIAL SQ SCH ×3 (07:57→16:30)
--- NOTE | 2018-06-19 11:30 | NUR ---
Family to bedside; discussing possible transfer with rep from [facility].
[2018-06-19] MEDS: NYSTATIN SUSPENSION 5 ML UDC PO SCH ×2 (12:45→18:44)
--- NOTE | 2018-06-19 14:28 | NUR ---
WOUND CARE CONSULTATION: THIS IS A 62 YEAR OLD MALE PATIENT ADMITTED TO [facility] FOR APHASIA DUE TO ACUTE STROKE, CVA, AND DYSPHASIA. HEAD TO TOE SKIN ASSESSMENT PERFORMED. PATIENT HAS A RIGHT LATERAL ANKLE ESCHAR MEASURING 0.5X.5CM. PATIENT HAS A RIGHT HERRERA ABRASION MEASURING 4.5X2.5X0.1CM. PATIENT HAS A LEFT HERRERA ABRASION MEASURING 5.5X2.5X.1CM. THE PATIENT HAS A RIGHT KNEE ESCHAR MEASURING 2.5X1CM. PATIENT HAS RIGHT FOREARM RESOLVING CIRCUMFRINCIAL RESOLVING BLISTERS MEASURING 13N79X3.1CM. PATIENT HAS BRUISING NOTED TO HIS LEFT HIP AND LEFT SIDE. PATIENT HAS BRUISING NOTED AROUND THE RIGHT EYE. PATIENT RESIDES IN A JAIL. PATIENT SUFFERED A FALL FROM THE WHEEL CHAIR RECENTLY AT THE JAIL, PER FAMILY AT THE BEDSIDE DURING ASSESSMENT. LABS: WBC7.53 [id number] MEDICATIONS: ZOSYN RECOMMENDATION: -CONTINUE ALTERNATING PRESSURE RELIEF MATTRESS. -CONTINUE BILATERAL HEEL PROTECTORS WITH PILLOW SUSPENSION. -TURN EVERY 2 HOURS AND PRN. -NURSING TO MONITOR RIGHT LATERAL ANKLE ESCHAR AND RIGHT KNEE ESCHAR. -NURSING TO APPLY SANTYL, THEN NORMAL SALINE MOISTENED GAUZE, KERLIX TO RIGHT AND LEFT HERRERA ABRASIONS; CHANGE DAILY AND PRN. -NURSING TO APPLY XEROFORM, 4X4 GAUZE, KERLIX TO RIGHT FOREARM RESOLVING BLISTERS; CHANGE DRESSING EVERY OTHER DAY AND PRN. THANK YOU FOR THIS WOUND CARE CONSULT. Addendum: 06/19/18 at 1446 by Ellen Gracia RN Amended: Links added.
--- NOTE | 2018-06-19 15:12 | NUR ---
ORDER FOR [facility] EVAL AND TRANSFER CHOICE LETTER ON CHART FROM DAUGHTER KO AGUILLON HERE TO EVAL PT MOT ON CHART AND INITIATED; CONSENT FROM DAUGHTER PAL CM REC'D CALL FROM PAL AT [facility] AT 13:00 STATING PT IS APPROVED SHE WILL CALL MOT INFORMATION AND ROOM NUMBER TO ICU NURSE
[2018-06-19] MEDS ORDERED: AMLODIPINE BESYLATE 5 MG TAB PEG SCH (15:45)
[2018-06-19] MEDS ORDERED: METOPROLOL TARTRATE 50 MG TAB PO SCH (17:00)
[2018-06-19] MEDS ORDERED: WARFARIN SOD 5 MG TAB PO SCH (17:00)
[2018-06-19 17:46] LABS: INR 0.92; PROTHROMBIN TIME 13.2 seconds (11.9-14.5)
--- NOTE | 2018-06-19 17:53 | NUR ---
Report called to Leah Britton to MIR Palacio.
[2018-06-19] MEDS: ZIPRASIDONE 20 MG VIAL IM PRN (20:42)
[2018-06-19] MEDS: WATER STERILE 10 ML VIAL INJ PRN (20:42)
--- NOTE | 2018-06-19 20:55 | NUR ---
[facility] TRANSFER SERVICE HERE TO TRANSPORT [facility]. [id number] AT BEDSIDE. MEDICATED PATIENT WITH PRN GEODON TO HELP DECREASE AGITATION. ALL NEEDED PAPERWORK SENT WITH EMS
[2018-06-19] MEDS ORDERED: ENOXAPARIN INJ 80 MG/0.8 ML SYR SC SCH (21:00)
[2018-06-20] MEDS ORDERED: COLLAGENASE 5 GM TUBE TOP SCH (09:00)
--- NOTE | 2018-06-20 14:08 | Discharge Summary ---
A 62-year-old male patient admitted with altered mental status, worsening weakness on the left side, and diagnosed with new stroke with cerebral edema. The patient also had fever, and he failed a swallow evaluation. He had a G-tube placement. He was treated with antibiotics. The patient was diagnosed with aspiration pneumonitis. He also had anemia. Hemoglobin dropped to 7. The patient received blood transfusion. Due to multiple medical problems, he is currently transferred to long-term acute care hospital for treatment of his pneumonia and rehabilitation. The patient remained confused and agitated with 1:1 observation. He was unable to be transferred to nursing home. DISCHARGE DIAGNOSES 1. Acute stroke. 2. Left hemiplegia. 3. Fever. 4. Anemia. 5. Dysphagia. Status post percutaneous endoscopic gastrostomy feeding. 6. History of paroxysmal atrial fibrillation. DISCHARGE MEDICATIONS: Reconciled. PREETHI RUBIN MD Job#: [id number] [place]
== END 2018-06-19 21:10 | DRG 64 ==
LOC: ER 12:24 → ERHOLD 16:39 → MED/SURG 18:21 → ICU 06-11 12:48
PROVIDERS: ADMIT Internal Medicine; ATTEND Internal Medicine
PROC: 0DH63UZ Insertion of Feeding Device into Stomach, Percutaneous Approach (ICD-10-PCS; principal; 2018-06-15 14:02)
DX: I63.511 Cerebral infarction due to unspecified occlusion or stenosis of right middle cerebral artery (principal); G93.6 Cerebral edema; G81.94 Hemiplegia, unspecified affecting left nondominant side; G93.49 Other encephalopathy; E86.0 Dehydration; T79.6XXA Traumatic ischemia of muscle, initial encounter; E11.9 Type 2 diabetes mellitus without complications; I10 Essential (primary) hypertension; Z79.4 Long term (current) use of insulin; E78.5 Hyperlipidemia, unspecified; I48.0 Paroxysmal atrial fibrillation; Z79.01 Long term (current) use of anticoagulants; R47.01 Aphasia; R13.12 Dysphagia, oropharyngeal phase; Z82.49 Family history of ischemic heart disease and other diseases of the circulatory system; Z83.3 Family history of diabetes mellitus; Z80.3 Family history of malignant neoplasm of breast; K44.9 Diaphragmatic hernia without obstruction or gangrene; L89.890 Pressure ulcer of other site, unstageable
CPT/HCPCS: 36415; 43246; 70450; 70551; 71045; 74230; 80048; 80053; 80061; 81001; 82550; 82553; 82948; 83036; 83735; 84132; 84484; 85025; 85610; 85730; 86850; 86900; 86920; 92523; 93005; 93306; 93880; 96372; 97139; 99284; J1650; J2060; J2250; J2543; J3475; J3480; J3486; J7030; J7040; J7050; P9016; Q2009